=== PATIENT | male | born 1970 | race Two or more races ===

== ENCOUNTER → 2025-09-30 | Outpatient (CLI) | payer OTHER, MEDICAID, SELFPAY ==
--- NOTE | 2025-09-30 13:00 | XR_ITS ---
Examination: MRI right clavicle without contrast Date and time of exam: September 30, 2025, 1342 hours INDICATIONS: Pulling injury to the clavicle, felt a pop followed by pain January 2025 Technique: Multiple MRI axial and sagittal sections clavicle Sagittal T2-weighted images, TR 3500, TE 118 T1 weighted transverse sections, TR 688 T8.5, T2-weighted sagittal sections T1 weighted sagittal sections TR 621, TE 30 T2 axial sections, TR 4, 190, TE 84. 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
== END | disposition home or self-care (01) ==
LOC: SMRI 12:44
PROVIDERS: PCP Physician Assistant; Referring Provider Physician Assistant; Visit Provider Physician Assistant
DX: M19.09 Primary osteoarthritis, other specified site (principal)
CPT/HCPCS: 73221